=== PATIENT | male | born 2000 | race Caucasian/White ===

== ENCOUNTER 2023-02-15 10:25 | Emergency (ER) | payer BC, OTHER ==
[~2023-02-15] VITALS: Ht 185.4 cm; Wt 95.3 kg
[2023-02-15 10:27] VITALS: BP 124/78; PULSE 68; RESP 16; TEMP 98; O2SAT 97
[2023-02-15] MEDS ORDERED: GUAI600T45 PO (11:48)
[2023-02-15] MEDS ORDERED: SODI30SP3 BOTHNARES (11:48)
== END 2023-02-15 11:55 | disposition home or self-care (01) ==
LOC: ER 10:27
DX: H92.02 Otalgia, left ear (principal); R05.9 Cough, unspecified; Z88.2 Allergy status to sulfonamides; Z88.1 Allergy status to other antibiotic agents; Z88.8 Allergy status to other drugs, medicaments and biological substances; Z79.899 Other long term (current) drug therapy
CPT/HCPCS: 99282; 99283

== ENCOUNTER 2023-07-03 17:45 | Emergency (ER) | payer BC ==
[~2023-07-03] VITALS: Ht 185.4 cm; Wt 90.9 kg
[~2023-07-03 17:45] MED LIST: GUAI600T45 PO; SODI30SP3 BOTHNARES
[2023-07-03 17:48] VITALS: BP 145/75; PULSE 76; RESP 18; TEMP 99.1; O2SAT 98
[2023-07-03 18:31] LABS: BASOPHILS # (AUTO) 0.1 X10'3 (0-0.2); EOSINOPHILS # (AUTO) 0.1 X10'3 (0-0.9); EOSINOPHILS % (AUTO) 0.6 % (0-6); HEMATOCRIT 44.3 % (42.0-52.0); LYMPHOCYTES # (AUTO) 2.3 X10'3 (1.1-4.8); LYMPHOCYTES % (AUTO) 24.5 % (21-51); MEAN CORPUSCULAR HEMOGLOBIN 30.9 PG (27.0-31.0); MEAN CORPUSCULAR HGB CONC 33.9 g/dL (33.0-36.5); MEAN CORPUSCULAR VOLUME 91.2 FL (78-98); MEAN PLATELET VOLUME 9.1 FL (7.4-10.4); MONOCYTES # (AUTO) 1.1 X10'3 (0-0.9); MONOCYTES % (AUTO) 12.5 % (2-12); NEUTROPHILS # (AUTO) 5.6 X10'3 (1.8-7.7); NEUTROPHILS % (AUTO) 61.4 % (42-75); PLATELET COUNT 247 X10'3 (140-440); RED BLOOD COUNT 4.86 X10'6 (4.70-6.10); WHITE BLOOD COUNT 9.2 X10'3 (4.5-11.0)
[2023-07-03 18:42] LABS: ANION GAP 14 (8-16); BILIRUBIN,TOTAL 0.7 MG/DL (0.1-1.0); BLOOD UREA NITROGEN 10 MG/DL (7-18); BUN/CREATININE RATIO 8.5 (10.0-20.0); CALCIUM 9.9 MG/DL (8.5-10.1); CHLORIDE 100 MMOL/L (99-107); CREATININE 1.17 MG/DL (0.60-1.10); GLUCOSE 116 MG/DL (70-104); POTASSIUM 3.1 MMOL/L (3.5-5.1); SODIUM 137 MMOL/L (135-145); TOTAL CARBON DIOXIDE 22.9 MMOL/L (24-32); TOTAL PROTEIN 8.2 G/DL (6.4-8.2); eCRCL 114 ML/MIN; eGFR 79 ML/MIN
[2023-07-03 18:43] LABS: ALANINE AMINOTRANSFERASE 19 U/L (12-78); ALBUMIN/GLOBULIN RATIO 1.6 (1.1-1.5); ALKALINE PHOSPHATASE 83 IU/L (20-180); AMYLASE 29 U/L (25-115); ASPARTATE AMINO TRANSFERASE 24 U/L (10-37); LIPASE 48 U/L (16-77)
[2023-07-03] MEDS ORDERED: DICY20TA17 PO (23:27)
[2023-07-03] MEDS ORDERED: ONDA4TAB12 PO (23:27)
== END 2023-07-03 23:50 | disposition home or self-care (01) ==
LOC: ER 17:45
DX: K29.00 Acute gastritis without bleeding (principal); Z88.1 Allergy status to other antibiotic agents; Z88.2 Allergy status to sulfonamides
CPT/HCPCS: 36415; 74176; 80053; 82150; 83690; 85025; 99284

== ENCOUNTER 2023-08-24 23:14 | Emergency (ER) | payer BC ==
[~2023-08-24] VITALS: Ht 182.9 cm; Wt 88.6 kg
[~2023-08-24 23:14] MED LIST changes: +DICY20TA17 PO; +ONDA-243 PO
[2023-08-24 23:43] LABS: BILIRUBIN,URINE NEGATIVE (Neg); CLARITY,URINE CLEAR (Clear); COLOR,URINE YELLOW (Yellow); GLUCOSE, URINE NEGATIVE (Neg); KETONES,URINE NEGATIVE (Neg); LEUKOCYTE ESTERASE ,URINE NEGATIVE (Neg); NITRITES, URINE NEGATIVE (Neg); OCCULT BLOOD,URINE NEGATIVE (Neg); PH,URINE 7.5 (4.8-8.0); PROTEIN,URINE NEGATIVE (Neg); UROBILINOGEN,URINE 0.2 E.U/dL (0.2-1.0)
[2023-08-24 23:46] LABS: UA COLLECTION TYPE CLN CATCH MIDSTREAM
[2023-08-25] MEDS: azithromycin 250mg tablet PO ONE (00:44)
[2023-08-25] MEDS: metroNIDAZOLE 500mg tablet PO ONE (00:44)
[2023-08-25] MEDS: CefTRIAXone 500MG IM Kit w/LIDOcaine IM ONE (00:44)
[2023-08-25 01:28] VITALS: BP 112/70; PULSE 66; RESP 16; TEMP 98; O2SAT 98
== END 2023-08-25 01:29 | disposition home or self-care (01) ==
LOC: ER 23:15
DX: R07.89 Other chest pain (principal); F17.200 Nicotine dependence, unspecified, uncomplicated; Z88.2 Allergy status to sulfonamides; Z79.899 Other long term (current) drug therapy
CPT/HCPCS: 81003; 93005; 96372; 99284; J0696